=== PATIENT | male | born 2000 | race Caucasian/White ===

== ENCOUNTER 2023-09-02 21:44 | Emergency (ER) | payer SELFPAY ==
[~2023-09-02] VITALS: Ht 170.2 cm; Wt 80.0 kg
[2023-09-02] MEDS ORDERED: ONDANSETRON HCL 4MG/2ML INJ IV ONE (23:00)
[2023-09-02] MEDS ORDERED: MORPHINE SULFATE 4 MG/ML CPJ (NOT FOR IM USE) IV ONE (23:00)
[2023-09-02] MEDS ORDERED: PROPOFOL 200MG/20ML VIAL IV ONE (23:00)
[2023-09-02 23:55] VITALS: TEMP 98.2
[2023-09-03] MEDS ORDERED: HYDR-4001 MT ×3 (01:03→08:47)
[2023-09-03 01:08] VITALS: BP 123/69; PULSE 102; RESP 14; O2SAT 98
== END 2023-09-03 01:15 | disposition home or self-care (01) ==
LOC: ER 21:44
DX: S82.892A Other fracture of left lower leg, initial encounter for closed fracture (principal); S93.05XA Dislocation of left ankle joint, initial encounter; X58.XXXA Exposure to other specified factors, initial encounter; Y93.89 Activity, other specified; Y92.89 Other specified places as the place of occurrence of the external cause; Y99.8 Other external cause status
CPT/HCPCS: 73590; 73600 ×2; 27840; 96374; 96375; 99152; 99285; J2405; J2270; Z7610 ×2; J2704